=== PATIENT | male | born 1955 | race Caucasian/White ===

== ENCOUNTER 2018-06-12 01:15 | Inpatient (IN) | payer MEDICARE, OTHER ==
[2018-06-12] MEDS: SOD CHLORIDE 0.9% 500 ML IV (01:34)
[2018-06-12 02:08] LABS: ADD MAN DIFF? NO
[2018-06-12 02:14] LABS: BASOPHILS % 0.4 % (0.0-2.0); EOSINOPHILS # 0.1 10^3/ul (0.0-0.5); EOSINOPHILS % 1.9 % (0.0-7.0); HEMATOCRIT 36.9 % (42.0-52.0); HEMOGLOBIN 12.1 g/dl (14.0-18.0); LYMPHOCYTES % 15.5 % (15.0-51.0); MEAN CORPUSCULAR HEMOGLOBIN 29.4 pg (29.0-33.0); MEAN CORPUSCULAR HGB CONC 32.8 g/dl (32.0-37.0); MEAN CORPUSCULAR VOLUME 89.8 fl (82.0-101.0); MONOCYTE # 0.7 10^3/ul (0.3-0.9); MONOCYTES % 9.8 % (0.0-11.0); NEUTROPHIL # 4.8 10^3/ul (1.6-7.5); NEUTROPHILS % 71.7 % (39.0-77.0); PLATELET COUNT 203 10^3/UL (140-415); RED BLOOD COUNT 4.11 10^6/ul (4.70-6.10)
[2018-06-12 02:14] LABS: WHITE BLOOD COUNT 6.7 10^3/ul (4.8-10.8)
[2018-06-12 02:34] LABS: INR 0.91; PARTIAL THROMBOPLASTIN TIME 21.3 Sec (23.0-35.0); PROTIME 12.3 Sec (11.9-14.9)
[2018-06-12 02:42] LABS: ANION GAP 9 (5-13); BLOOD UREA NITROGEN 19 mg/dl (7-20); CALCIUM 9.1 mg/dl (8.4-10.2); CARBON DIOXIDE 26 mmol/L (21-31); CHLORIDE 105 mmol/L (97-110); CREATININE 0.98 mg/dl (0.61-1.24); Estimated GFR > 60 mL/min (>60); GLUCOSE 242 mg/dl (70-220); POTASSIUM 4.4 mmol/L (3.5-5.1); SODIUM 140 mmol/L (135-144)
[2018-06-12 02:53] LABS: TROPONIN-I < 0.012 ng/ml (0.000-0.120)
[2018-06-12] MEDS: GUAIFENESIN/CODEINE 5ML CUP PO (06:01)
[2018-06-12] MEDS ORDERED: GLUCOSE GEL 15 GRAM TUBE BUCCAL (06:30)
[2018-06-12] MEDS ORDERED: NACL 0.9% 3 ML SYG IV (06:30)
[2018-06-12] MEDS ORDERED: GLUCAGON 1 MG INJ IM (06:30)
[2018-06-12] MEDS ORDERED: ONDANSETRON 4 MG INJ IV (06:30)
[2018-06-12] MEDS ORDERED: ACETAMINOPHEN 325 MG TAB PO (06:30)
[2018-06-12] MEDS ORDERED: DEXTROSE 50% 50 ML SYRINGE IV ×2 (06:30)
[2018-06-12] MEDS ORDERED: GLUCOSE GEL 15 GRAM TUBE PO ×2 (06:30)
[2018-06-12 07:37] LABS: CREATINE KINASE 207 IU/L (23-200)
[2018-06-12 07:49] LABS: CK INDEX 0.7; CK-MB 1.54 ng/ml (0.0-2.4); TROPONIN-I < 0.012 ng/ml (0.000-0.120)
[2018-06-12] MEDS ORDERED: HEPARIN 5,000 UNIT/0.5 ML VIAL ×2 (08:08→19:47)
[2018-06-12] MEDS: HEPARIN SODIUM 5,000 UNIT/ML VIAL SC ×2 (08:14→22:22)
[2018-06-12] MEDS: ASPIRIN (EC) 81 MG TAB PO (08:15)
[2018-06-12] MEDS: PIOGLITAZONE 15 MG TAB PO (08:15)
[2018-06-12] MEDS: LINAGLIPTIN 5 MG TABLET PO (08:15)
[2018-06-12] MEDS: METOPROLOL 50 MG TAB PO ×2 (08:16→22:15)
[2018-06-12] MEDS: LISINOPRIL 20 MG TAB PO (08:17)
[2018-06-12] MEDS: INSULIN ASPART [NOVOLOG] 3 ML PEN SC ×4 (08:17→22:22)
[2018-06-12] MEDS: INSULIN GLARGINE [LANTus] (100 UNITS/ML) SYG SC (08:17)
[2018-06-12] MEDS: AMLODIPINE 5 MG TAB PO (08:17)
[2018-06-12 13:36] LABS: CREATINE KINASE 192 IU/L (23-200)
[2018-06-12 13:49] LABS: CK INDEX 0.6; CK-MB 1.19 ng/ml (0.0-2.4); TROPONIN-I < 0.012 ng/ml (0.000-0.120)
[2018-06-12] MEDS: ATORVASTATIN 20 MG TAB PO (22:15)
[2018-06-13] MEDS: ACCU-CHEK XX (02:00)
[2018-06-13] MEDS: ALBUTEROL/IPRATROPIUM (NEB) 3 ML AMP HHN ×5 (02:01→21:00)
[2018-06-13 06:17] LABS: ADD MAN DIFF? NO
[2018-06-13 06:23] LABS: WHITE BLOOD COUNT 6.5 10^3/ul (4.8-10.8)
[2018-06-13 06:23] LABS: BASOPHILS % 0.6 % (0.0-2.0); EOSINOPHILS # 0.3 10^3/ul (0.0-0.5); EOSINOPHILS % 4.1 % (0.0-7.0); HEMATOCRIT 36.2 % (42.0-52.0); HEMOGLOBIN 11.8 g/dl (14.0-18.0); LYMPHOCYTES # 1.7 10^3/ul (0.8-2.9); LYMPHOCYTES % 25.8 % (15.0-51.0); MEAN CORPUSCULAR HEMOGLOBIN 29.2 pg (29.0-33.0); MEAN CORPUSCULAR HGB CONC 32.6 g/dl (32.0-37.0); MEAN CORPUSCULAR VOLUME 89.6 fl (82.0-101.0); MEAN PLATELET VOLUME 11.3 fl (7.4-10.4); MONOCYTE # 0.8 10^3/ul (0.3-0.9); MONOCYTES % 11.6 % (0.0-11.0); NEUTROPHIL # 3.7 10^3/ul (1.6-7.5); NEUTROPHILS % 57.1 % (39.0-77.0); PLATELET COUNT 203 10^3/UL (140-415); RED BLOOD COUNT 4.04 10^6/ul (4.70-6.10); RED CELL DISTRIBUTION WIDTH 14.3 % (11.5-14.5)
[2018-06-13 06:36] LABS: HEMOGLOBIN A1C 7.3 % (0-5.9)
[2018-06-13 06:44] LABS: ALANINE AMINOTRANSFERASE 24 IU/L (13-69); ALBUMIN 3.2 g/dl (3.3-4.9); ALKALINE PHOSPHATASE 76 IU/L (42-121); ANION GAP 11 (5-13); ASPARTATE AMINO TRANSFERASE 26 IU/L (15-46); BILIRUBIN,INDIRECT 0.5 mg/dl (0-1.1); BILIRUBIN,TOTAL 0.5 mg/dl (0.2-1.3); BLOOD UREA NITROGEN 19 mg/dl (7-20); CALCIUM 9.7 mg/dl (8.4-10.2); CARBON DIOXIDE 25 mmol/L (21-31); CHLORIDE 103 mmol/L (97-110); CHOL/HDL RATIO 2.9 RATIO; CHOLESTEROL 101 mg/dl (100-200); CREATININE 0.97 mg/dl (0.61-1.24); Estimated GFR > 60 mL/min (>60); GLUCOSE 163 mg/dl (70-220); HDL CHOLESTEROL 34 mg/dl (30-78); LDL CHOLESTEROL,CALCULATED 36 mg/dl; MAGNESIUM 1.8 mg/dl (1.7-2.5); POTASSIUM 4.1 mmol/L (3.5-5.1); SODIUM 139 mmol/L (135-144); TOTAL PROTEIN 6.4 g/dl (6.1-8.1); TRIGLYCERIDES 153 mg/dl (0-149)
[2018-06-13 06:46] LABS: PHOSPHORUS 2.9 mg/dl (2.5-4.9)
[2018-06-13 07:12] LABS: THYROID STIMULATING HORMONE 0.926 MIU/L (0.465-4.680)
[2018-06-13] MEDS: INSULIN GLARGINE [LANTus] (100 UNITS/ML) SYG SC (08:06)
[2018-06-13] MEDS: INSULIN ASPART [NOVOLOG] 3 ML PEN SC ×4 (08:07→21:14)
[2018-06-13] MEDS ORDERED: ALBUTEROL/IPRATROPIUM (NEB) 3 ML AMP HHN (09:00)
[2018-06-13] MEDS ORDERED: HEPARIN 5,000 UNIT/0.5 ML VIAL ×2 (09:33→20:57)
[2018-06-13] MEDS: PIOGLITAZONE 15 MG TAB PO (09:37)
[2018-06-13] MEDS: METOPROLOL 50 MG TAB PO ×2 (09:38→21:07)
[2018-06-13] MEDS: ASPIRIN (EC) 81 MG TAB PO (09:39)
[2018-06-13] MEDS: LINAGLIPTIN 5 MG TABLET PO (09:39)
[2018-06-13] MEDS: LISINOPRIL 20 MG TAB PO (09:39)
[2018-06-13] MEDS: AMLODIPINE 5 MG TAB PO (09:39)
[2018-06-13] MEDS: HEPARIN SODIUM 5,000 UNIT/ML VIAL SC ×2 (09:45→21:15)
[2018-06-13] MEDS: ATORVASTATIN 20 MG TAB PO (21:06)
[2018-06-14] MEDS: ACCU-CHEK XX (02:00)
[2018-06-14] MEDS: GUAIFENESIN/CODEINE 5ML CUP PO (02:19)
[2018-06-14] MEDS: INSULIN ASPART [NOVOLOG] 3 ML PEN SC ×3 (07:55→17:12)
[2018-06-14] MEDS: INSULIN GLARGINE [LANTus] (100 UNITS/ML) SYG SC (07:59)
[2018-06-14] MEDS: ALBUTEROL/IPRATROPIUM (NEB) 3 ML AMP HHN ×3 (08:30→17:03)
[2018-06-14] MEDS ORDERED: HEPARIN 5,000 UNIT/0.5 ML VIAL (09:43)
[2018-06-14] MEDS: PIOGLITAZONE 15 MG TAB PO (09:50)
[2018-06-14] MEDS: ASPIRIN (EC) 81 MG TAB PO (09:51)
[2018-06-14] MEDS: LINAGLIPTIN 5 MG TABLET PO (09:52)
[2018-06-14] MEDS: LISINOPRIL 20 MG TAB PO (09:53)
[2018-06-14] MEDS: AMLODIPINE 5 MG TAB PO (09:53)
[2018-06-14] MEDS: METOPROLOL 50 MG TAB PO (09:54)
[2018-06-14] MEDS: HEPARIN SODIUM 5,000 UNIT/ML VIAL SC (10:04)
== END 2018-06-14 19:39 | disposition home or self-care (01) | DRG 312 ==
LOC: E/R 01:15 → TEL 02:52
DX: R55 Syncope and collapse (principal); E11.9 Type 2 diabetes mellitus without complications; Z79.4 Long term (current) use of insulin; I10 Essential (primary) hypertension; E78.5 Hyperlipidemia, unspecified; H35.30 Unspecified macular degeneration; H54.40 Blindness, one eye, unspecified eye
CPT/HCPCS: 36415; 70450; 70553; 71045; 80048; 80053; 80061; 82550; 82553; 82962; 83036; 83735; 84100; 84443; 84484; 85025; 85610; 85730; 93005; 93306; 93880; 94640; 94664; 95819; 99285-25; G0378

== ENCOUNTER 2018-06-17 17:03 | Emergency (ER) | payer MEDICARE, OTHER ==
[2018-06-17 19:56] LABS: ADD MAN DIFF? NO
[2018-06-17 20:07] LABS: ANION GAP 10 (5-13); BLOOD UREA NITROGEN 25 mg/dl (7-20); CALCIUM 10.5 mg/dl (8.4-10.2); CARBON DIOXIDE 25 mmol/L (21-31); CHLORIDE 101 mmol/L (97-110); CREATININE 1.12 mg/dl (0.61-1.24); Estimated GFR > 60 mL/min (>60); GLUCOSE 275 mg/dl (70-220); POTASSIUM 4.8 mmol/L (3.5-5.1); SODIUM 136 mmol/L (135-144)
[2018-06-17 20:12] LABS: WHITE BLOOD COUNT 11.1 10^3/ul (4.8-10.8)
[2018-06-17 20:12] LABS: BASOPHIL # 0.1 10^3/ul (0.0-0.1); BASOPHILS % 0.5 % (0.0-2.0); EOSINOPHILS # 0.3 10^3/ul (0.0-0.5); EOSINOPHILS % 2.3 % (0.0-7.0); HEMATOCRIT 41.3 % (42.0-52.0); HEMOGLOBIN 13.7 g/dl (14.0-18.0); LYMPHOCYTES # 1.7 10^3/ul (0.8-2.9); LYMPHOCYTES % 15.3 % (15.0-51.0); MEAN CORPUSCULAR HEMOGLOBIN 29.8 pg (29.0-33.0); MEAN CORPUSCULAR HGB CONC 33.2 g/dl (32.0-37.0); MEAN CORPUSCULAR VOLUME 89.8 fl (82.0-101.0); MEAN PLATELET VOLUME 12.1 fl (7.4-10.4); MONOCYTE # 0.8 10^3/ul (0.3-0.9); MONOCYTES % 6.9 % (0.0-11.0); NEUTROPHIL # 8.2 10^3/ul (1.6-7.5); PLATELET COUNT 262 10^3/UL (140-415); RED CELL DISTRIBUTION WIDTH 14.3 % (11.5-14.5)
[2018-06-17 20:19] LABS: TROPONIN-I < 0.012 ng/ml (0.000-0.120)
== END 2018-06-17 21:19 | disposition home or self-care (01) ==
LOC: E/R 17:03
DX: E11.65 Type 2 diabetes mellitus with hyperglycemia (principal); I10 Essential (primary) hypertension; I25.10 Atherosclerotic heart disease of native coronary artery without angina pectoris; Z79.4 Long term (current) use of insulin; Z79.82 Long term (current) use of aspirin
CPT/HCPCS: 36415; 80048; 82962; 84484; 85025; 93005; 99284-25